=== PATIENT | female | born 1995 | race Caucasian/White ===

== ENCOUNTER 2017-12-27 13:37 | Emergency (ER) | payer OTHER ==
[2017-12-27] MEDS ORDERED: MECLIZINE HCL 25 MG TAB PO ONE (13:59)
--- NOTE | 2017-12-27 14:14 | EDPHY ---
H & P Stated Complaint: Dizzy x3 days, Time Seen by Provider: 12/27/17 13:49 HPI/ROS: CHIEF COMPLAINT: Intermittent vertigo HISTORY OF PRESENT ILLNESS: The patient is a 22-year-old healthy female with a history of anxiety who started on citalopram 3 months ago by her primary. The plan was to take it for 3 months and see if it helped. She finished her prescription 5 days ago and then 4 days ago began feeling intermittent episodes of vertigo. She states that it dose not seem to be positional or exertional. She does not have any chest pain or shortness of breath associated. No recent fevers. No headaches. Occasional nausea during the episodes. She states that each episode only lasts for few seconds and then resolves. She is currently asymptomatic. No palpitations. She does not have up to follow up with her primary until the . No fevers. No vision changes. No presyncopal symptoms. No recent cold or fevers. REVIEW OF SYSTEMS: Constitutional: denies: chills, fever, recent illness, recent injury EENTM: denies: blurred vision, double vision, nose congestion Respiratory: denies: cough, shortness of breath Cardiac: denies: chest pain, irregular heart rate, lightheadedness, palpitations Gastrointestinal/Abdominal: denies: abdominal pain, diarrhea, nausea, vomiting, blood streaked stools Genitourinary: denies: dysuria, frequency, hematuria, pain Musculoskeletal: denies: joint pain, muscle pain Skin: denies: lesions, rash, jaundice, bruising Neurological: denies: headache, numbness, paresthesia, tingling, dizziness, weakness Hematologic/Lymphatic: denies: blood clots, easy bleeding, easy bruising Immunologic/allergic: denies: HIV/AIDS, transplant EXAM: GENERAL: Well-appearing, well-nourished and in no acute distress. HEAD: Atraumatic, normocephalic. EYES: No nystagmus elicited at baseline or with Jacqueline maneuver. No dysconjugate gaze, normal head impulse testing. Pupils equal round and reactive to light, extraocular movements intact, sclera anicteric, conjunctiva are normal. ENT: TMs normal, nares patent, oropharynx clear without exudates. Moist mucous membranes. NECK: Normal range of motion, supple without lymphadenopathy or JVD. LUNGS: Breath sounds clear to auscultation bilaterally and equal. No wheezes rales or rhonchi. HEART: Regular rate and rhythm without murmurs, rubs or gallops. ABDOMEN: Soft, nontender, normoactive bowel sounds. No guarding, no rebound. No masses appreciated. BACK: No CVA tenderness, no spinal tenderness, step-offs or deformities EXTREMITIES: Normal range of motion, no pitting or edema. No clubbing or cyanosis. NEUROLOGICAL: Cranial nerves II through XII grossly intact. Normal speech, normal gait. 5/5 strength, normal movement in all extremities, normal sensation , no nystagmus, normal head impulse test, no exacerbation with Jacqueline maneuver, normal test of skew. PSYCH: Normal mood, normal affect. SKIN: Warm, dry, normal turgor, no visible rashes or lesions. Source: Patient Exam Limitations: No limitations - Personal History LMP (Females 10-55): 15-21 Days Ago Current Tetanus/Diphtheria Vaccine: Yes Current Tetanus Diphtheria and Acellular Pertussis (TDAP): Yes - Medical/Surgical History Hx Asthma: No Hx Chronic Respiratory Disease: No Hx Diabetes: No Hx Cardiac Disease: No Hx Renal Disease: No Hx Cirrhosis: No Hx Alcoholism: No Hx HIV/AIDS: No Hx Splenectomy or Spleen Trauma: No Other PMH: PMH: gastritis, palpitations, anxiety - Family History Significant Family History: No pertinent family hx - Social History Smoking Status: Never smoked Alcohol Use: Sober Drug Use: None Constitutional: Initial Vital Signs Temperature (C) 36.7 C 12/27/17 13:38 Heart Rate 111 H 12/27/17 13:38 Respiratory Rate 18 12/27/17 13:38 Blood Pressure 109/63 12/27/17 13:38 O2 Sat (%) 99 12/27/17 13:38 O2 Delivery Mode Room Air Allergies/Adverse Reactions: No Known Allergies Allergy (Unverified 12/27/17 13:40) Home Medications: Medication Instructions Recorded Citalopram 12/27/17 IRON 12/27/17 VITAMIN D 12/27/17 Medical Decision Making ED Course/Re-evaluation: Dizziness is the 1st symptom listed in the literature as a side effect of discontinuing citalopram. This is likely the source of her symptoms. Her exam is normal. I will treat her with meclizine and observed. 2:30 p.m. the patient is feeling fine. She does not to wait or be observed. She would like to go home. She does not want to restart the citalopram. She will follow up with her doctor on the to discuss alternatives. Differential Diagnosis: Partial list of the Differential diagnosis considered include but were not limited to; anxiety, medication reaction, peripheral vertigo, vestibular neuritis and although unlikely based on the history and physical exam, I also considered central cause of vertigo, dissection, migraine. I discussed these differential diagnoses and the plan with the patient as well as the usual and expected course. The patient understands that the diagnosis is provisional and that in medicine we are not always correct and that further workup is often warranted. Usual and customary warnings were given. All of the patient's questions were answered. The patient was instructed to return to the emergency department should the symptoms at all worsen or return, otherwise to followup with the physician as we discussed. - Data Points Medications Given: Discontinued Medications Meclizine HCl (Meclizine Hcl) 25 mg PO EDNOW ONE Stop: 12/27/17 14:00 Last Admin: 12/27/17 14:10 Dose: 25 mg Departure - Departure Disposition: Home, Routine, Self-Care Clinical Impression: Medication reaction Qualifiers: Encounter type: initial encounter Qualified Code(s): T88.7XXA - Unspecified adverse effect of drug or medicament, initial encounter Condition: Good Instructions: Vertigo (ED) Referrals: Keshia Ortiz MD [Medical Doctor] - As per Instructions
[2017-12-27 14:44] VITALS: BP 110/79; PULSE 86; RESP 16; TEMP 98.4; O2SAT 97
== END 2017-12-27 14:46 | disposition home or self-care (01) ==
DX: R42 Dizziness and giddiness (principal); T43.225A Adverse effect of selective serotonin reuptake inhibitors, initial encounter

== ENCOUNTER 2018-11-22 13:23 | Emergency (ER) | payer OTHER ==
[2018-11-22] MEDS ORDERED: NS 1,000 ML IV ONE (14:21)
[2018-11-22] MEDS ORDERED: ONDANSETRON 4 MG/2 ML VIAL IVP ONE (14:39)
--- NOTE | 2018-11-22 14:43 | EDPHY ---
H & P Time Seen by Provider: 11/22/18 14:23 HPI/ROS: CHIEF COMPLAINT: Vomiting HISTORY OF PRESENT ILLNESS: Patient is a 23-year-old female presents emergency department with vomiting. The patient states that she awoke around 12 noon. She felt nauseated and had 4-5 episodes of nonbloody emesis back to back. She has mild lower abdominal cramping. No fevers or chills. No diarrhea. No dysuria or frequency. The patient has been well leading up to today. No sick contacts at home. No travel. REVIEW OF SYSTEMS: 10 systems were reveiwed and are negative with the exception of the elements mentioned in the history of present illness. Past Medical/Surgical History: Includes gastritis, palpitations, anxiety Smoking Status: Never smoked Physical Exam: Vitals noted GENERAL: No acute distress, alert. HEENT: Eyes normal to inspection, normal pharynx, no signs of dehydration. NECK: Normal, supple. RESPIRATORY: Clear to auscultation bilaterally, no rales, rhonchi or wheezing. CVS: Regular rate and rhythm, no rubs, murmurs, or gallops. ABDOMEN: Soft, nontender, nondistended, no organomegaly. BACK: Normal to inspection, no CVA tenderness. SKIN: Normal color, no rash, warm, dry. No pallor. EXTREMITIES: No pedal edema, no calf tenderness, no Homans sign or cords, no joint swelling. NEURO/PSYCH: Alert and oriented, normal mood and affect, normal motor sensory exam. Constitutional: Initial Vital Signs Temperature (C) 36.3 C 11/22/18 13:27 Heart Rate 60 11/22/18 13:27 Respiratory Rate 16 11/22/18 13:27 Blood Pressure 95/72 L 11/22/18 13:27 O2 Sat (%) 98 11/22/18 13:27 O2 Delivery Mode Room Air Allergies/Adverse Reactions: No Known Allergies Allergy (Unverified 11/22/18 13:26) Home Medications: Medication Instructions Recorded Citalopram 12/27/17 Ondansetron Odt [Zofran Odt 4 mg 4 mg PO Q4PRN PRN #7 tab 11/22/18 (*)] Medical Decision Making ED Course/Re-evaluation: In the emergency department I discussed possible etiologies with the patient. I answered all her questions. IV was placed. Laboratory studies were obtained. Patient given normal saline 1 L IV for hydration. Patient was given Zofran 4 mg IV. CBC and chemistry unremarkable. LFTs are negative. Lipase is normal. is negative. On recheck the patient was feeling better. On exam her abdomen was soft, nontender nondistended. She was given warnings prior to leaving. She will return with worsening symptoms. She was given a prescription of Zofran. Differential Diagnosis: My differential includes but is not limited to small-bowel obstruction, perforation, viral illness, cholecystitis, pancreatitis, dehydration - Data Points Laboratory Results: Laboratory Results 11/22/18 14:40 11/22/18 14:40 11/22/18 11/22/18 11/22/18 14:40 14:40 14:40 WBC 9.35 10^3/uL 10^3/uL (3.80-9.50) RBC 4.99 10^6/uL 10^6/uL (4.18-5.33) Hgb 13.3 g/dL g/dL (12.6-16.3) Hct 41.8 % % (38.0-47.0) MCV 83.8 fL fL (81.5-99.8) MCH 26.7 pg L pg (27.9-34.1) MCHC 31.8 g/dL L g/dL (32.4-36.7) RDW 14.1 % % (11.5-15.2) Plt Count 253 10^3/uL 10^3/uL (150-400) MPV 10.2 fL fL (8.7-11.7) Neut % (Auto) 78.1 % H % (39.3-74.2) Lymph % (Auto) 16.4 % % (15.0-45.0) Toombs % (Auto) 4.8 % % (4.5-13.0) Eos % (Auto) 0.3 % L % (0.6-7.6) Baso % (Auto) 0.2 % L % (0.3-1.7) Nucleat RBC Rel Count 0.0 % % (0.0-0.2) Absolute Neuts (auto) 7.30 10^3/uL H 10^3/uL (1.70-6.50) Absolute Lymphs (auto) 1.53 10^3/uL 10^3/uL (1.00-3.00) Absolute Monos (auto) 0.45 10^3/uL 10^3/uL (0.30-0.80) Absolute Eos (auto) 0.03 10^3/uL 10^3/uL (0.03-0.40) Absolute Basos (auto) 0.02 10^3/uL 10^3/uL (0.02-0.10) Absolute Nucleated RBC 0.00 10^3/uL 10^3/uL (0-0.01) Immature Gran % 0.2 % % (0.0-1.1) Immature Gran # 0.02 10^3/uL 10^3/uL (0.00-0.10) Sodium 136 mEq/L mEq/L (135-145) Potassium 3.8 mEq/L mEq/L (3.5-5.2) Chloride 104 mEq/L mEq/L (97-110) Carbon Dioxide 25 mEq/l mEq/l (22-31) Anion Gap 7 mEq/L mEq/L (6-14) BUN 11 mg/dL mg/dL (7-23) Creatinine 0.6 mg/dL mg/dL (0.6-1.0) Estimated GFR > 60 Glucose 91 mg/dL mg/dL (70-100) Calcium 9.2 mg/dL mg/dL (8.5-10.4) Total Bilirubin 1.1 mg/dL mg/dL (0.1-1.4) Conjugated Bilirubin 0.1 mg/dL mg/dL (0.0-0.5) Unconjugated Bilirubin 1.0 mg/dL mg/dL (0.0-1.1) AST 14 IU/L IU/L (14-46) ALT 14 IU/L IU/L (9-52) Alkaline Phosphatase 85 IU/L IU/L (38-126) Total Protein 7.6 g/dL g/dL (6.3-8.2) Albumin 4.4 g/dL g/dL (3.5-5.0) Lipase 102 IU/L IU/L (23-300) Beta HCG, Qual NEGATIVE Medications Given: Discontinued Medications Sodium Chloride (Ns) 1,000 mls @ 0 mls/hr IV ONCE ONE; Wide Open PRN Reason: Protocol Stop: 11/22/18 14:22 Last Admin: 11/22/18 14:46 Dose: 1,000 mls Ondansetron HCl (Zofran) 4 mg IVP EDNOW ONE Stop: 11/22/18 14:40 Last Admin: 11/22/18 14:46 Dose: 4 mg Departure - Departure Disposition: Home, Routine, Self-Care Clinical Impression: Vomiting Qualifiers: Vomiting type: unspecified Vomiting Intractability: non-intractable Nausea presence: with nausea Qualified Code(s): R11.2 - Nausea with vomiting, unspecified Condition: Good Instructions: Acute Nausea and Vomiting (ED) Additional Instructions: Return with increasing abdominal pain, fever, vomiting or any other concerns. Referrals: Estrellita Bangura MD [Medical Doctor] - 5-7 days, call for appt. Prescriptions: Ondansetron Odt [Zofran Odt 4 mg (*)] 4 mg PO Q4PRN PRN #7 tab PRN Reason: For Nausea & Vomiting
[2018-11-22 15:10] LABS: PLATELET COUNT 253 10^3/uL (150-400)
[2018-11-22 16:09] VITALS: BP 124/68
== END 2018-11-22 16:09 | disposition home or self-care (01) ==
DX: R11.2 Nausea with vomiting, unspecified (principal); E86.9 Volume depletion, unspecified
CPT/HCPCS: 96374; J2405